=== PATIENT | male | born 1985 | race Two or more races ===

== ENCOUNTER 2018-06-24 17:21 | Inpatient (IN) | payer SELFPAY ==
--- NOTE | 2018-06-24 17:46 | EDPHY ---
H & P Stated Complaint: fever Time Seen by Provider: 06/24/18 17:42 HPI/ROS: HPI: This is a 32-year-old male who presents with Chief Complaint: Fever Location: Body Quality: Fever Duration: This morning Signs and Symptoms: no nausea, no vomiting, no diarrhea, no urinary symptoms, no chest pain, no shortness of breath, no wheezing, no cough, no sore throat, no neck stiffness, no joint pain, no swollen glands, no ear pain, no rash Timing: Acute, sudden Severity: Moderate to severe Context: Patient presents with waking up this morning with a temperature of a 104.3 F accompanied by decreased appetite and fatigue. Patient denies urinary symptoms, cough, wheezing, skin color changes, abdominal pain, vomiting, neck stiffness, sore throat. He is not taking any antipyretic medications. He reports that he received his influenza vaccine this year. [id number] at bedside and reports that he has a complicated medical history including coronary artery disease, CHF, atrial fibrillation on Eliquis and chronic right leg lymphedema. In the past, he has been treated for right lower extremity cellulitis. Patient reports mild increase of redness, warmth tenderness from based. Modifying Factors: None Comment: ROS: A comprehensive 10 system review of systems is otherwise negative aside from elements mentioned in the history of present illness. MEDICAL/SURGICAL/SOCIAL HISTORY: Medical history: Coronary artery disease, CHF, atrial fibrillation-On Eliquis, chronic right leg lymphedema Surgical history: Denies Social history: Nonsmoker. with children. Family history noncontributory. CONSTITUTIONAL: Ill but nontoxic-appearing morbidly obese, adult male, awake and alert, no obvious distress HEENT: Atraumatic and normocephalic, PERRL, EOMI. Nares patent; no rhinorrhea; no nasal mucosal edema. Tympanic membranes clear. Oropharynx clear, no exudate and moist pink mucosa. Airway patent. No lymphadenopathy. No meningismus. Cardiovascular: Normal S1/S2, irregular rate, tachycardia, without murmur rub or gallop. PULMONARY/CHEST: Symmetrical and nontender. Clear to auscultation bilaterally. Good air movement. No accessory muscle usage. ABDOMEN: Soft, nondistended, nontender, no rebound, no guarding, no peritoneal signs, no masses or organomegaly. No CVAT. EXTREMITIES: 2/2 pulses, strength 5/5, chronic right lower extremity lymphedema ; no erythema/warmth. no deformities, no clubbing, no cyanosis. NEUROLOGICAL: no focal neuro deficits. Slightly confused and not able to answer all questions appropriately per [id number] at bedside. SKIN: Warm and dry, no erythema. no rash. Good capillary refill. Source: Patient Exam Limitations: No limitations - Personal History Current Tetanus/Diphtheria Vaccine: Unsure Current Tetanus Diphtheria and Acellular Pertussis (TDAP): Unsure - Medical/Surgical History Hx Asthma: No Hx Chronic Respiratory Disease: No Hx Diabetes: No Hx Cardiac Disease: No Hx Renal Disease: No Hx Cirrhosis: No Hx Alcoholism: No Hx HIV/AIDS: No Hx Splenectomy or Spleen Trauma: No Other PMH: afib - Social History Smoking Status: Never smoked Constitutional: Initial Vital Signs Temperature (C) 38.5 C H 06/24/18 17:35 Heart Rate 113 H 06/24/18 17:35 Respiratory Rate 28 H 06/24/18 17:35 Blood Pressure 154/81 H 06/24/18 17:35 O2 Sat (%) 94 06/24/18 17:35 O2 Delivery Mode Room Air Allergies/Adverse Reactions: No Known Allergies Allergy (Unverified 06/24/18 17:34) Home Medications: Medication Instructions Recorded Ibuprofen [Motrin (*)] 400 mg PO DAILY PRN 06/24/18 Medical Decision Making - Diagnostics Imaging Results: Imaging Impressions Chest X-Ray 06/24/18 17:46 Impression: 1. Mild bronchitis/airways disease. 2. No definite focal pneumonia. Extremity Venous Study 06/24/18 18:20 Impression: 1. No major deep venous thrombosis right leg. 2. Nonvisualization of the right calf veins. Findings and recommendations discussed with Emergency Department physician, Christa Block at 19:06 hour, 06/24/2018. Final report concurs with initial preliminary interpretation. ED Course/Re-evaluation: Vital signs reviewed and sepsis protocol flagged. IV access and laboratory studies and a chest x-ray, urinalysis, RLE US and influenza test ordered Only given 500 cc normal saline instead of fluid bolus per sepsis protocol due to history of congestive heart failure and concern for fluid overload and Tylenol 1000 mg 1755: Notified by RN that [id number] reports that she gave 4 tablets of Tylenol at 5:00 p.m. Patient told me that he has not had any Tylenol or ibuprofen today. This is conflicting information. Patient needs antipyretic for fever and will give ibuprofen 600 mg. 1853: Labs reviewed. WBC 23 K with left shift, lactic acid 2.1, BUN 25, creatinine 1.9, proBNP 7 210-unsure of baseline. Total bili elevated likely due to sepsis. O2 sats 94% on room air Chest x-ray based on radiology read shows Mild bronchitis/airways disease, No definite focal pneumonia. 1904: Called by Dr. Yeager; right lower extremity ultrasound shows no DVT in femoral, popliteal vein 1926: Reassessed patient who is alert and oriented x3. Not able to answer questions more appropriately wants fever has resolved. Patient reports that there is mild increase of redness and warmth to the right lower extremity. Will go ahead and prophylactically start IV Ancef 2 g for cellulitis treatment. Influenza a and B negative. Respiratory pathogen panel ordered. ED decision to consult for admission for sepsis secondary to viral syndrome versus right lower extremity cellulitis. Spoke with hospitalist, Dr. Collins, who kindly agrees to admit patient to provide further care. Urinalysis pending at time of consult. 1956: Urinalysis shows no signs of infection. + hematuria; may need renal ultrasound for further evaluation This patient was seen under the supervision of my secondary supervising physician. I evaluated care for this patient independently. Discussed this patient with Dr. Rao who did not see the patient. Differential Diagnosis: Adult fever including but not limited to viral syndromes including influenza, urinary tract infection, pneumonia and sepsis. Critical Care Time: I spent a total of 38 minutes of critical care time in obtaining history, performing a physical exam, bedside monitoring of interventions, collecting and interpreting tests and discussion with consultants but not including time spent performing procedures. - Data Points Laboratory Results: Laboratory Results 06/24/18 18:02 06/24/18 18:02 06/24/18 06/24/18 06/24/18 19:15 19:15 18:02 WBC RBC Hgb Hct MCV MCH MCHC RDW Plt Count MPV Neut % (Auto) Lymph % (Auto) [place] % (Auto) Eos % (Auto) Baso % (Auto) Nucleat RBC Rel Count Absolute Neuts (auto) Absolute Lymphs (auto) Absolute Monos (auto) Absolute Eos (auto) Absolute Basos (auto) Absolute Nucleated RBC Immature Gran % Seg Neutrophils % Band Neutrophils % Lymphocytes % Monocytes % Eosinophils % Basophils % Metamyelocytes % Myelocytes % Promyelocytes % Blast Cells % Immature Gran # Absolute Seg Neuts Absolute Band Neuts Absolute Lymphocytes Absolute Monocytes Absolute Eosinophils Absolute Basophils Absolute Metamyelocyte Absolute Myelocytes Absolute Promyelocytes Absolute Plasma Cells Nucleated RBCs RBC/WBC/PLT Morphology Absolute Blast Cells Plasma Cells % Platelet Estimate VBG Lactic Acid Sodium Potassium Chloride Carbon Dioxide Anion Gap BUN Creatinine Estimated GFR Glucose Calcium Total Bilirubin Conjugated Bilirubin Unconjugated Bilirubin AST ALT Alkaline Phosphatase NT-Pro-B Natriuret Pep Total Protein Albumin Procalcitonin Pending Urine Color YELLOW Urine Appearance HAZY Urine pH 5.0 (5.0-7.5) Ur Specific [place] 1.016 (1.002-1.030) Urine Protein 3+ H (NEGATIVE) Urine Ketones NEGATIVE (NEGATIVE) Urine Blood 2+ H (NEGATIVE) Urine Nitrate NEGATIVE (NEGATIVE) Urine Bilirubin NEGATIVE (NEGATIVE) Urine Urobilinogen 2.0 EU H EU (0.2-1.0) Ur Leukocyte Esterase NEGATIVE (NEGATIVE) Urine RBC 15-25 /hpf H /hpf (0-3) Urine WBC 1-3 /hpf /hpf (0-3) Ur Epithelial Cells TRACE /lpf /lpf (NONE-1+) Urine Bacteria TRACE /hpf H /hpf (NONE SEEN) Hyaline Casts 1-5 /lpf /lpf (0-1) Urine Mucus TRACE /lpf /lpf (NONE-1+) Ur Random Creatinine 198.3 mg/dL mg/dL U Random Total Protein 933 mg/dL H mg/dL (0-11) Ur Random Sodium 13 mEq/L L mEq/L (30-90) Urine Glucose NEGATIVE (NEGATIVE) Nasal Influenza A PCR Nasal Influenza B PCR 06/24/18 06/24/18 06/24/18 18:02 18:02 18:02 WBC 23.42 10^3/uL H 10^3/uL (3.80-9.50) RBC 5.90 10^6/uL 10^6/uL (4.40-6.38) Hgb 14.8 g/dL g/dL (13.7-17.5) Hct 44.9 % % (40.0-51.0) MCV 76.1 fL L fL (81.5-99.8) MCH 25.1 pg L pg (27.9-34.1) MCHC 33.0 g/dL g/dL (32.4-36.7) RDW 15.9 % H % (11.5-15.2) Plt Count 229 10^3/uL 10^3/uL (150-400) MPV 9.3 fL fL (8.7-11.7) Neut % (Auto) Not Reported Lymph % (Auto) Not Reported [place] % (Auto) Not Reported Eos % (Auto) Not Reported Baso % (Auto) Not Reported Nucleat RBC Rel Count Not Reported Absolute Neuts (auto) Not Reported Absolute Lymphs (auto) Not Reported Absolute Monos (auto) Not Reported Absolute Eos (auto) Not Reported Absolute Basos (auto) Not Reported Absolute Nucleated RBC Not Reported Immature Gran % Not Reported Seg Neutrophils % 71.3 % % Band Neutrophils % 22.8 % % Lymphocytes % 1.0 % % Monocytes % 2.9 % % Eosinophils % 0.0 % % Basophils % 0.0 % % Metamyelocytes % 2.0 % % Myelocytes % 0.0 % % Promyelocytes % 0.0 % % Blast Cells % 0.0 % % Immature Gran # Not Reported Absolute Seg Neuts 16.70 10^3/uL H 10^3/uL (1.70-6.50) Absolute Band Neuts 5.34 10^3/uL H 10^3/uL (0.00-0.70) Absolute Lymphocytes 0.23 10^3/uL L 10^3/uL (1.00-3.00) Absolute Monocytes 0.68 10^3/uL 10^3/uL (0.30-0.80) Absolute Eosinophils 0.00 10^3/uL L 10^3/uL (0.03-0.40) Absolute Basophils 0.00 10^3/uL L 10^3/uL (0.02-0.10) Absolute Metamyelocyte 0.47 10^3/mL H 10^3/mL (0.00-0.00) Absolute Myelocytes 0.00 10^3/mL 10^3/mL (0.00-0.00) Absolute Promyelocytes 0.00 10^3/uL 10^3/uL (0.00-0.00) Absolute Plasma Cells 0.00 10^3/uL 10^3/uL (0.00-0.00) Nucleated RBCs 0 /100 WBC /100 WBC (0-0) RBC/WBC/PLT Morphology NORMAL (NORMAL) Absolute Blast Cells 0.00 10^3/uL 10^3/uL (0.00-0.00) Plasma Cells % 0.0 % % Platelet Estimate ADEQUATE (ADEQ) VBG Lactic Acid Sodium 133 mEq/L L mEq/L (135-145) Potassium 3.9 mEq/L mEq/L (3.3-5.0) Chloride 102 mEq/L mEq/L (97-110) Carbon Dioxide 20 mEq/l L mEq/l (22-31) Anion Gap 11 mEq/L mEq/L (6-14) BUN 25 mg/dL H mg/dL (7-23) Creatinine 1.9 mg/dL H mg/dL (0.7-1.3) Estimated GFR 41 Glucose 128 mg/dL H mg/dL (70-100) Calcium 8.4 mg/dL L mg/dL (8.5-10.4) Total Bilirubin 1.6 mg/dL H mg/dL (0.1-1.4) Conjugated Bilirubin 0.5 mg/dL mg/dL (0.0-0.5) Unconjugated Bilirubin 1.1 mg/dL mg/dL (0.0-1.1) AST 32 IU/L IU/L (17-59) ALT 19 IU/L L IU/L (21-72) Alkaline Phosphatase 64 IU/L IU/L (38-126) NT-Pro-B Natriuret Pep 7210 pg/mL H pg/mL (0-125) Total Protein 8.1 g/dL g/dL (6.3-8.2) Albumin 3.6 g/dL g/dL (3.5-5.0) Procalcitonin Urine Color Urine Appearance Urine pH Ur Specific [place] Urine Protein Urine Ketones Urine Blood Urine Nitrate Urine Bilirubin Urine Urobilinogen Ur Leukocyte Esterase Urine RBC Urine WBC Ur Epithelial Cells Urine Bacteria Hyaline Casts Urine Mucus Ur Random Creatinine U Random Total Protein Ur Random Sodium Urine Glucose Nasal Influenza A PCR NEGATIVE FOR FLU A (NEGATIVE) Nasal Influenza B PCR NEGATIVE FOR FLU B (NEGATIVE) 06/24/18 18:02 WBC RBC Hgb Hct MCV MCH MCHC RDW Plt Count MPV Neut % (Auto) Lymph % (Auto) [place] % (Auto) Eos % (Auto) Baso % (Auto) Nucleat RBC Rel Count Absolute Neuts (auto) Absolute Lymphs (auto) Absolute Monos (auto) Absolute Eos (auto) Absolute Basos (auto) Absolute Nucleated RBC Immature Gran % Seg Neutrophils % Band Neutrophils % Lymphocytes % Monocytes % Eosinophils % Basophils % Metamyelocytes % Myelocytes % Promyelocytes % Blast Cells % Immature Gran # Absolute Seg Neuts Absolute Band Neuts Absolute Lymphocytes Absolute Monocytes Absolute Eosinophils Absolute Basophils Absolute Metamyelocyte Absolute Myelocytes Absolute Promyelocytes Absolute Plasma Cells Nucleated RBCs RBC/WBC/PLT Morphology Absolute Blast Cells Plasma Cells % Platelet Estimate VBG Lactic Acid 2.1 mmol/L mmol/L (0.7-2.1) Sodium Potassium Chloride Carbon Dioxide Anion Gap BUN Creatinine Estimated GFR Glucose Calcium Total Bilirubin Conjugated Bilirubin Unconjugated Bilirubin AST ALT Alkaline Phosphatase NT-Pro-B Natriuret Pep Total Protein Albumin Procalcitonin Urine Color Urine Appearance Urine pH Ur Specific [place] Urine Protein Urine Ketones Urine Blood Urine Nitrate Urine Bilirubin Urine Urobilinogen Ur Leukocyte Esterase Urine RBC Urine WBC Ur Epithelial Cells Urine Bacteria Hyaline Casts Urine Mucus Ur Random Creatinine U Random Total Protein Ur Random Sodium Urine Glucose Nasal Influenza A PCR Nasal Influenza B PCR Medications Given: Discontinued Medications Sodium Chloride (Ns) 500 mls @ 1,000 mls/hr IV EDNOW ONE PRN Reason: Protocol Stop: 06/24/18 18:16 Last Admin: 06/24/18 18:05 Dose: 500 mls Cefazolin Sodium/Dextrose (Ancef) 100 mls @ 200 mls/hr IV EDNOW ONE PRN Reason: Protocol Stop: 06/24/18 19:51 Last Admin: 06/24/18 19:31 Dose: 100 mls Ibuprofen (Motrin) 600 mg PO EDNOW ONE Stop: 06/24/18 17:57 Last Admin: 06/24/18 18:05 Dose: 600 mg Departure - Departure Disposition: [facility] Acute Clinical Impression: Lymphedema of right lower extremity, Cellulitis of right lower extremity, Renal insufficiency Sepsis Qualifiers: Sepsis type: sepsis due to unspecified organism Qualified Code(s): A41.9 - Sepsis, unspecified organism Condition: Fair
[2018-06-24] MEDS ORDERED: ACETAMINOPHEN 500 MG TAB PO ONE (17:47)
[2018-06-24] MEDS ORDERED: NS 500 ML IV ONE ×2 (17:47→20:42)
[2018-06-24] MEDS ORDERED: IBUPROFEN 600 MG TAB PO ONE (17:56)
[2018-06-24 18:21] LABS: PLATELET COUNT 229 10^3/uL (150-400)
[2018-06-24] MEDS ORDERED: ceFAZolin 2 GM/DEXTROSE 100 ML IV ONE (19:22)
[2018-06-24] MEDS ORDERED: CEFAZOLIN 1 GM/DEXTROSE/50 ML BAG IV ONE (19:26)
[2018-06-24] MEDS ORDERED: oxyCODONE IR 5 MG TAB PO PRN (19:56)
[2018-06-24] MEDS ORDERED: ONDANSETRON DISINTEGRATING 4 MG TAB PO PRN (19:56)
[2018-06-24] MEDS ORDERED: ONDANSETRON 4 MG/2 ML VIAL IVP PRN (19:56)
--- NOTE | 2018-06-24 20:07 | PDGENHP ---
History and Physical - Chief Complaint fever - History of Present Illness 32yo obese M with history of atrial fibrillation not on anticoagulation, chronic R leg edema presents to ED with fever to 104.3 degrees at home. He is in town from [place] visiting his father who was just released from this hospital a few days ago with home hospice services. He had been in usual state of health until yesterday evening when he developed chills. Woke up with AM with temperature. Has been lethargic all day so family encouraged him to come in. He denies any cough, shortness of breath, chest pain, neck stiffness, headache, n/v/d, urinary symptoms. He does note that his right leg is more swollen and red than normal. No drainage or open wounds that he is aware of. In the ED, he was meeting sepsis criteria (temp 38.5, HR 113, RR 28, WBC 23K with left shift). CXR negative for pneumonia. Due to appearance of his right leg , he was given 2g of cephalexin and is being admitted to the floor for further management. Case discussed with ED provider Christa Block. 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 in last 6 months), RLE cellulitis (was on keflex 10/2017), morbid obesity - Surgical History Reports: no pertinent surgical hx - Family History Additional family history: father - ESRD, no known early CAD - Social History Smoking Status: Never smoked Alcohol Use: Rarely Drug Use: None Additional social history: Lives in [place] with and kids, 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 Review of Systems Review of Systems: ROS: 10pt was reviewed & negative except for what was stated in HPI & below Physical Exam Physical Exam: Temp Pulse Resp BP Pulse Ox 37.5 C 101 H 22 H 145/89 H 93 06/24/18 19:56 06/24/18 19:56 06/24/18 19:56 06/24/18 19:56 06/24/18 19:56 Constitutional: obese, uncomfortable, other (sweat on forehead) Eyes: PERRL, anicteric sclera, EOMI Ears, Nose, Mouth, Throat: dry mucous membranes Cardiovascular: no murmur, rub, or gallop, tachycardia, edema (impressive RLE pitting edema) Respiratory: no rales or rhonchi, clear to auscultation, other (tachypneic) Gastrointestinal: normoactive bowel sounds, soft, non-tender abdomen, no palpable masses Genitourinary: no bladder fullness, no bladder tenderness Skin: other (chronic venous stasis of RLE with overlying erythema ) Musculoskeletal: full muscle strength, no muscle tenderness, normal joint ROM, no joint effusions Neurologic: AAOx3 Psychiatric: interacting appropriately, not anxious, not encephalopathic, thought process linear Lab Data & Imaging Review 06/24/18 18:02 06/24/18 18: WBC 23.42 10^3/uL (3.80-9.50) H 06/24/18 18: RBC 5.90 10^6/uL (4.40-6.38) 06/24/18 18: Hgb 14.8 g/dL (13.7-17.5) 06/24/18 18: Hct 44.9 % (40.0-51.0) 06/24/18 18: MCV 76.1 fL (81.5-99.8) L 06/24/18 18: MCH 25.1 pg (27.9-34.1) L 06/24/18 18:02 MCHC 33.0 g/dL (32.4-36.7) 06/24/18 18: RDW 15.9 % (11.5-15.2) H 06/24/18 18:02 Plt Count 229 10^3/uL (150-400) 06/24/18 18: MPV 9.3 fL (8.7-11.7) 06/24/18 18: Neut % (Auto) Not Reported 06/24/18 18:02 Lymph % (Auto) Not Reported 06/24/18 18:02 [place] % (Auto) Not Reported 06/24/18 18:02 Eos % (Auto) Not Reported 06/24/18 18: Baso % (Auto) Not Reported 06/24/18 18:02 Nucleat RBC Rel Count Not Reported 06/24/18 18:02 Absolute Neuts (auto) Not Reported 06/24/18 18:02 Absolute Lymphs (auto) Not Reported 06/24/18 18:02 Absolute Monos (auto) Not Reported 06/24/18 18:02 Absolute Eos (auto) Not Reported 06/24/18 18:02 Absolute Basos (auto) Not Reported 06/24/18 18:02 Absolute Nucleated RBC Not Reported 06/24/18 18:02 Immature Gran % Not Reported 06/24/18 18:02 Seg Neutrophils % 71.3 % 06/24/18 18:02 Band Neutrophils % 22.8 % 06/24/18 18:02 Lymphocytes % 1.0 % 06/24/18 18:02 Monocytes % 2.9 % 06/24/18 18:02 Eosinophils % 0.0 % 06/24/18 18:02 Basophils % 0.0 % 06/24/18 18:02 Metamyelocytes % 2.0 % 06/24/18 18:02 Myelocytes % 0.0 % 06/24/18 18:02 Promyelocytes % 0.0 % 06/24/18 18:02 Blast Cells % 0.0 % 06/24/18 18:02 Immature Gran # Not Reported 06/24/18 18:02 Absolute Seg Neuts 16.70 10^3/uL (1.70-6.50) H 06/24/18 18:02 Absolute Band Neuts 5.34 10^3/uL (0.00-0.70) H 06/24/18 18:02 Absolute Lymphocytes 0.23 10^3/uL (1.00-3.00) L 06/24/18 18:02 Absolute Monocytes 0.68 10^3/uL (0.30-0.80) 06/24/18 18:02 Absolute Eosinophils 0.00 10^3/uL (0.03-0.40) L 06/24/18 18:02 Absolute Basophils 0.00 10^3/uL (0.02-0.10) L 06/24/18 18:02 Absolute Metamyelocyte 0.47 10^3/mL (0.00-0.00) H 06/24/18 18:02 Absolute Myelocytes 0.00 10^3/mL (0.00-0.00) 06/24/18 18:02 Absolute Promyelocytes 0.00 10^3/uL (0.00-0.00) 06/24/18 18:02 Absolute Plasma Cells 0.00 10^3/uL (0.00-0.00) 06/24/18 18:02 Nucleated RBCs 0 /100 WBC (0-0) 06/24/18 18:02 RBC/WBC/PLT Morphology NORMAL (NORMAL) 06/24/18 18:02 Absolute Blast Cells 0.00 10^3/uL (0.00-0.00) 06/24/18 18:02 Plasma Cells % 0.0 % 06/24/18 18:02 Platelet Estimate ADEQUATE (ADEQ) 06/24/18 18:02 VBG Lactic Acid 2.1 mmol/L (0.7-2.1) 06/24/18 18:02 Sodium 133 mEq/L (135-145) L 06/24/18 18:02 Potassium 3.9 mEq/L (3.3-5.0) 06/24/18 18:02 Chloride 102 mEq/L (97-110) 06/24/18 18:02 Carbon Dioxide 20 mEq/l (22-31) L 06/24/18 18:02 Anion Gap 11 mEq/L (6-14) 06/24/18 18:02 BUN 25 mg/dL (7-23) H 06/24/18 18:02 Creatinine 1.9 mg/dL (0.7-1.3) H 06/24/18 18:02 Estimated GFR 41 06/24/18 18:02 Glucose 128 mg/dL (70-100) H 06/24/18 18:02 Calcium 8.4 mg/dL (8.5-10.4) L 06/24/18 18:02 Total Bilirubin 1.6 mg/dL (0.1-1.4) H 06/24/18 18:02 Conjugated Bilirubin 0.5 mg/dL (0.0-0.5) 06/24/18 18:02 Unconjugated Bilirubin 1.1 mg/dL (0.0-1.1) 06/24/18 18:02 AST 32 IU/L (17-59) 06/24/18 18:02 ALT 19 IU/L (21-72) L 06/24/18 18:02 Alkaline Phosphatase 64 IU/L (38-126) 06/24/18 18:02 NT-Pro-B Natriuret Pep 7210 pg/mL (0-125) H 06/24/18 18:02 Total Protein 8.1 g/dL (6.3-8.2) 06/24/18 18:02 Albumin 3.6 g/dL (3.5-5.0) 06/24/18 18:02 Urine Color YELLOW 06/24/18 19:15 Urine Appearance HAZY 06/24/18 19:15 Urine pH 5.0 (5.0-7.5) 06/24/18 19:15 Ur Specific [place] 1.016 (1.002-1.030) 06/24/18 19:15 Urine Protein 3+ (NEGATIVE) H 06/24/18 19:15 Urine Ketones NEGATIVE (NEGATIVE) 06/24/18 19:15 Urine Blood 2+ (NEGATIVE) H 06/24/18 19:15 Urine Nitrate NEGATIVE (NEGATIVE) 06/24/18 19:15 Urine Bilirubin NEGATIVE (NEGATIVE) 06/24/18 19:15 Urine Urobilinogen 2.0 EU (0.2-1.0) H 06/24/18 19:15 Ur Leukocyte Esterase NEGATIVE (NEGATIVE) 06/24/18 19:15 Urine RBC 15-25 /hpf (0-3) H 06/24/18 19:15 Urine WBC 1-3 /hpf (0-3) 06/24/18 19:15 Ur Epithelial Cells TRACE /lpf (NONE-1+) 06/24/18 19:15 Urine Bacteria TRACE /hpf (NONE SEEN) H 06/24/18 19:15 Hyaline Casts 1-5 /lpf (0-1) 06/24/18 19:15 Urine Mucus TRACE /lpf (NONE-1+) 06/24/18 19:15 Ur Random Creatinine 198.3 mg/dL 06/24/18 19:15 Ur Random Sodium 13 mEq/L (30-90) L 06/24/18 19:15 Urine Glucose NEGATIVE (NEGATIVE) 06/24/18 19:15 Nasal Influenza A PCR NEGATIVE FOR FLU A (NEGATIVE) 06/24/18 18:02 Nasal Influenza B PCR NEGATIVE FOR FLU B (NEGATIVE) 06/24/18 18:02 Visualized and Interpreted Chest x-ray results: Yes Interpretation: CXR: normal heart size, no infiltrate or effusion, some perihilar fullness more prominent on the right (could represent PA enlargement) (interpreted by me). RLE duplex US: negative for DVT but limited study Visualized and Interpreted EKG results: Yes EKG additional interpertation: ECG: sinus tachy, left atrial enlargement, likely LVH with repol abnormality (manifested as T wave inversion/ST dep in lateral leads) (interp by me) Assessment & Plan Assessment: 32yo obese M with history of morbid obesity, atrial fibrillation not on anticoagulation, chronic R leg edema presents to ED with fever found to be septic. Plan: 1. Sepsis: Tachycardic, fever, leukocytosis, incr RR with likely skin source. With hematuria, an infected kidney stone is a possibility but he's asymptomatic. Alternatively, this could all be viral process. BP and lactate ok. - Ceftriaxone 1g q24, narrow to cephalexin if renal/ work up negative - IVF - Follow blood/urine cultures, respiratory viral PCR, obtain renal ultrasound 2. RLE cellulitis with chronic lymphedema: Has had recurrent skin infections in right leg in past - Treating as above, PT/OT 3. Elevated creatinine: Unknown baseline but this is likely acute injury from infection. Prerenal by FENa. - IVF, recheck in AM 4. Microscopic hematuria: No nitrites or WBCs on UA to suggest infection. He does have some protein on dipstick. - Imaging as above. Also check urine microscopy for casts, urine protein/ creatinine to eval for glomerular bleeding 5. Hyperbilirubinemia: Likely related to sepsis. Recheck in AM, if worsening consider RUQ ultrasound. 6. Elevated BNP: 7k. No prior. Says he had TTE recently in [place], will hold on repeating for now. Caution with IVF. 7. Atrial fibrillation: Reports one episode of this. NSR on admit. Off anticoagulation ([id number]). VTE ppx: SQH Code: full Diet: regular Dispo: Admit under observation
[2018-06-24] MEDS: HEPARIN 5,000 UNIT/0.5 ML INJ SC SCH (20:52)
[2018-06-24] MEDS: NS 1,000 ML IV SCH (20:52)
[2018-06-24] MEDS: ceFAZolin 2 GM/DEXTROSE 100 ML IV SCH (21:30)
[2018-06-25] MEDS ORDERED: ceFAZolin 2 GM/DEXTROSE 100 ML IV SCH (03:30)
--- NOTE | 2018-06-25 04:06 | CPEKG ---
Test Reason : OPEN Blood Pressure : / mmHG Vent. Rate : 112 BPM Atrial Rate : 113 BPM P-R Int : 152 ms QRS Dur : 110 ms QT Int : 377 ms P-R-T Axes : 069 042 000 degrees QTc Int : 515 ms Sinus tachycardia LAE, consider biatrial enlargement Abnormal T, consider ischemia, lateral leads Prolonged QT interval Confirmed by Sabi Hathaway ([id number]) on 06/25/2018 4:06:09 AM Referred By: Confirmed By:Sabi Hathaway
[2018-06-25] MEDS: HEPARIN 5,000 UNIT/0.5 ML INJ SC SCH ×3 (05:39→20:46)
[2018-06-25] MEDS: NS 1,000 ML IV SCH ×2 (11:44→20:46)
--- NOTE | 2018-06-25 12:38 | ASMTCMCOM ---
CM Note CM Note Notes: Pt is a 32 y/o man admitted for sepsis, viral syndrome and RLE cellulitis. Pt is visiting his family in [place]. Pts dad is currently home w/ hospice. Pt is here under self pay. According to pt, he has [place] medicaid. CM contacted financial counseling about this matter. Financial counseling to visit. CM met w/ pt and provided the phone numbe for financial counseling. CM spoke to Nelda w/ physical therapy. Nelda reports that pt does not have any d/c needs. Pt is morbidly obese. CM available for changes. Plan: Independent Date Signed: 06/25/2018 12:37 PM Electronically Signed By:TOMMY Atkins
[2018-06-25] MEDS: ACETAMINOPHEN 325 MG TAB PO PRN ×2 (16:05→23:26)
--- NOTE | 2018-06-25 17:29 | HOSPPROG ---
Hospitalist Progress Note Assessment/Plan: Subjective Follow-up on sepsis and right lower extremity cellulitis. Patient states his right lower extremity feels little better than it did when he 1st came in and has not subjectively noted any high fevers since starting on antibiotics. He states that he developed significant lymphedema in the right lower extremity about 5-6 years ago. He states it is usually about half the size that it currently is at. Objective Vital signs as detailed below Exam General-awake alert conversant no acute distress Heart-regular rate and rhythm no murmurs Lungs-Clear to auscultation with normal respiratory effort Abdomen-soft nontender nondistended normal bowel sounds -no Wills catheter in place Extremities-notable edema and warmth of the right lower extremity, erythema 900s appears to be subsiding Skin-no other concerning skin rashes noted Labs as detailed below Assessment plan Sepsis-likely source of elevated bilirubin. Clinically appears to be improving in his white blood cell count is trending down as well. Cellulitis-right lower extremity. Patient is currently on ceftriaxone appears to be improving so will continue with this antibiotic therapy. Patient states the level of swelling is about half of what it currently is at its baseline. Acute kidney injury-suspect prerenal based upon fractional excretion of sodium measured at 0.09%. Patient has been on normal saline at 75 mL/hour overnight. Creatinine is slightly up from 1.9 to 2.0. I recommend we increase the rate of normal saline to 125 mL/hour. Reassess creatinine again tomorrow morning. Hypoxia-patient may have obstructive sleep apnea. He was on room air at the time of my evaluation and satting at 94%. Atrial fibrillation-patient had 1 episode of atrial fibrillation earlier this year and was cardioverted with no known recurrence. His chads Vasc score is measured at 0. DVT prophylaxis-heparin. Disposition-I recommend continued inpatient stay for IV fluids in light of acute kidney injury. Objective: Vital Signs Temp Pulse Resp BP Pulse Ox 38.3 C H 104 H 18 131/91 H 97 06/25/18 17:16 06/25/18 17:16 06/25/18 17:16 06/25/18 17:16 06/25/18 17:16 Microbiology 06/24/18 19:31 Respiratory Panel (PCR) - Final Nasal, Sinus - Swab No Organism Detected By Pcr Laboratory Results 06/25/18 04:33 06/25/18 04:33 06/24/18 06/25/18 06/26/18 05:59 05:59 05:59 Intake Total 600 475 Output Total 200 100 Balance 400 375 ICD10 Worksheet Patient Problems: Problems Problem Status Onset Cellulitis of right lower extremity Acute Lymphedema of right lower extremity Acute Renal insufficiency Acute Sepsis Acute
[2018-06-26] MEDS: HEPARIN 5,000 UNIT/0.5 ML INJ SC SCH ×3 (05:16→21:08)
[2018-06-26] MEDS: NS 1,000 ML IV SCH ×2 (05:16→10:49)
[2018-06-26 05:40] LABS: PLATELET COUNT 159 10^3/uL (150-400)
--- NOTE | 2018-06-26 08:33 | PDMN ---
Medical Necessity Medical necessity: MCG: M160 sepsis and other febrile illness - pt also with RLE cellulitis improving. status changed 06/26/18 for ongoing care of sepsis/ cellulitis req IV abx. , further monitoring of cellulitis and elevated bili., Cr.
--- NOTE | 2018-06-26 12:04 | HOSPPROG ---
Hospitalist Progress Note Assessment/Plan: 32-year-old with chronic lymphedema right greater than left is admitted with fever leukocytosis and evidence of cellulitis on his right lower extremity. He denies any pain however his leg is a norm is with significant swelling above his baseline. Ultrasound ruled out evidence of DVT. He has signs and symptoms consistent with sepsis. # Right lower extremity cellulitis complicated by sepsis, leukocytosis improving and patient not currently febrile. Risk factors include chronic lymphedema in that extremity. * Discuss with ID regarding IV antibiotics currently on ceftriaxone with improvement in his white count and fever curve however continues to have massive edema and wonder if he will need a prolonged course of IV antibiotics. * Blood cultures negative to date * Patient not currently elevating leg will talk to nursing staff about elevating leg above his heart to see if that helps with the swelling. # Elevated BMP/edema. Pt with venous stasis, but given renal failure and elevated BNP will check echo # acute renal failure with elevated creatinine at 1.9. Unfortunately I am unclear of his baseline renal function no improvement with hydration. Renal ultrasound unremarkable. Urine shows proteinuria, mild hematuria and low sodium with no significant improvement with hydration. * Pt states he had episode of renal insufficiency several months ago but was told his kidneys returned to normal. * No records available as this occurred in [place], will attempt to get records * Unclear if this is all related to sepsis given hematuria and proteinuria, will discuss with renal re: need for further evaluation * No change with hydration * no nephrotoxics * No hypotension * Consider placing Wills to get better idea of I/Os, ultrasound was a poor study * check SPEP, given proteinuria # Hx afib in [place], converted to SR, CHADs = 0 # Venous stasis, evaluation in [place], Query if he has had CT of pelvis to look for obstruction. Will again, try to obtain records. # DVT proph: heparin. Subjective: Patient new to ms and chart reviewed. Denies significant pain in his right lower extremity although he has massive edema and swelling. Objective: Vital Signs Temp Pulse Resp BP Pulse Ox 36.9 C 87 22 H 149/82 H 97 06/26/18 11:38 06/26/18 11:38 06/26/18 11:38 06/26/18 11:38 06/26/18 11:38 Microbiology 06/24/18 19:31 Respiratory Panel (PCR) - Final Nasal, Sinus - Swab No Organism Detected By Pcr Laboratory Results 06/26/18 04:44 06/26/18 04:44 06/25/18 06/26/18 06/27/18 05:59 05:59 05:59 Intake Total 600 2925 Output Total 200 1150 Balance 400 1775 - Physical Exam Constitutional: no apparent distress, obese Eyes: PERRL Ears, Nose, Mouth, Throat: moist mucous membranes Cardiovascular: regular rate and rhythym, no murmur, rub, or gallop, edema ( Bilateral edema, massive edema on his right lower extremity) Respiratory: no respiratory distress, clear to auscultation Gastrointestinal: soft, non-tender abdomen Skin: warm, erythema (Right lower extremity) Musculoskeletal: No muscular tenderness Neurologic: AAOx3 Psychiatric: interacting appropriately, not anxious ICD10 Worksheet Patient Problems: Problems Problem Status Onset Cellulitis of right lower extremity Acute Lymphedema of right lower extremity Acute Renal insufficiency Acute Sepsis Acute
--- NOTE | 2018-06-26 13:18 | PDCONSULT ---
Jacquard Fixer Note: Renal Consult Note - Chief Complaint: Fever - History of Present Illness The patient is a 32 y/o M with a known h/o atrial fibrillation, chronic LE edema and obesity who presented with fever to 104F and was found to have recurrent LE cellulitis. He is visiting from [place] to see his father who was recently placed on hospice and is a former dialysis patient of Dr. Vitor Hoang. Upon his admission, he was reportedly lethargic with increased edema and erythema of his R leg. His Cr was near 2mg/dL. Today, the patient states that he was hospitalized last December for atrial fibrillation and was told he had some "issues with his kidney function" at that time, however it improved and he did not follow-up with nephrology afterward. He denies h/o hematuria, proteinuria, or other renal issues. He rarely takes NSAIDs, was not on antibiotics previous to this hospitalization (starting on Monday) and has no other new meds. He recently had blood work drawn prior to leaving [place], however does not know the results and isn't sure if he was screened for diabetes. He does not know his family history b/c he was adopted. He reports that he has had swelling in his R leg for nearly 8 years however it has "never been this bad." He is feeling better, missed his flight home last night, and isn 't sure when he is planning to return, however would be amenable to getting further work-up here. 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9 C 87 22 H 149/82 H 97 06/26/18 11:38 06/26/18 11:38 06/26/18 11:38 06/26/18 11:38 06/26/18 11:38 O2 (L/minute) 1 Constitutional: obese, no distress Eyes: PERRL, anicteric sclera, EOMI Ears, Nose, Mouth, Throat: dry mucous membranes Cardiovascular: no murmur, rub, or gallop, tachycardia Respiratory: tachypneic with some wheezing Gastrointestinal: normoactive bowel sounds, soft, non-tender abdomen, no palpable masses Genitourinary: no bladder fullness, no bladder tenderness Skin: RLE 4+ edema with no erythema, LLE trace edema Musculoskeletal: full muscle strength, no muscle tenderness, normal joint ROM, no joint effusions Neurologic: AAOx3, non-focal Psychiatric: appropriate Lab Data & Imaging Review WBC 14.91 10^3/uL (3.80-9.50) H 06/26/18 04:44 RBC 5.00 10^6/uL (4.40-6.38) 06/26/18 04:44 Hgb 12.4 g/dL (13.7-17.5) L 06/26/18 04:44 Hct 39.3 % (40.0-51.0) L 06/26/18 04:44 MCV 78.6 fL (81.5-99.8) L 06/26/18 04:44 MCH 24.8 pg (27.9-34.1) L 06/26/18 04:44 MCHC 31.6 g/dL (32.4-36.7) L 06/26/18 04:44 RDW 16.8 % (11.5-15.2) H 06/26/18 04:44 Plt Count 159 10^3/uL (150-400) 06/26/18 04:44 MPV 10.0 fL (8.7-11.7) 06/26/18 04:44 Neut % (Auto) 85.9 % (39.3-74.2) H 06/26/18 04:44 Lymph % (Auto) 5.0 % (15.0-45.0) L 06/26/18 04:44 [place] % (Auto) 8.0 % (4.5-13.0) 06/26/18 04:44 Eos % (Auto) 0.2 % (0.6-7.6) L 06/26/18 04:44 Baso % (Auto) 0.1 % (0.3-1.7) L 06/26/18 04:44 Nucleat RBC Rel Count 0.0 % (0.0-0.2) 06/26/18 04:44 Absolute Neuts (auto) 12.80 10^3/uL (1.70-6.50) H 06/26/18 04:44 Absolute Lymphs (auto) 0.75 10^3/uL (1.00-3.00) L 06/26/18 04:44 Absolute Monos (auto) 1.19 10^3/uL (0.30-0.80) H 06/26/18 04:44 Absolute Eos (auto) 0.03 10^3/uL (0.03-0.40) 06/26/18 04:44 Absolute Basos (auto) 0.02 10^3/uL (0.02-0.10) 06/26/18 04:44 Absolute Nucleated RBC 0.00 10^3/uL (0-0.01) 06/26/18 04:44 Immature Gran % 0.8 % (0.0-1.1) 06/26/18 04:44 Seg Neutrophils % 71.3 % 06/24/18 18:02 Band Neutrophils % 22.8 % 06/24/18 18:02 Lymphocytes % 1.0 % 06/24/18 18:02 Monocytes % 2.9 % 06/24/18 18:02 Eosinophils % 0.0 % 06/24/18 18:02 Basophils % 0.0 % 06/24/18 18:02 Metamyelocytes % 2.0 % 06/24/18 18:02 Myelocytes % 0.0 % 06/24/18 18:02 Promyelocytes % 0.0 % 06/24/18 18:02 Blast Cells % 0.0 % 06/24/18 18:02 Immature Gran # 0.12 10^3/uL (0.00-0.10) H 06/26/18 04:44 Absolute Seg Neuts 16.70 10^3/uL (1.70-6.50) H 06/24/18 18:02 Absolute Band Neuts 5.34 10^3/uL (0.00-0.70) H 06/24/18 18:02 Absolute Lymphocytes 0.23 10^3/uL (1.00-3.00) L 06/24/18 18:02 Absolute Monocytes 0.68 10^3/uL (0.30-0.80) 06/24/18 18:02 Absolute Eosinophils 0.00 10^3/uL (0.03-0.40) L 06/24/18 18:02 Absolute Basophils 0.00 10^3/uL (0.02-0.10) L 06/24/18 18:02 Absolute Metamyelocyte 0.47 10^3/mL (0.00-0.00) H 06/24/18 18:02 Absolute Myelocytes 0.00 10^3/mL (0.00-0.00) 06/24/18 18:02 Absolute Promyelocytes 0.00 10^3/uL (0.00-0.00) 06/24/18 18:02 Absolute Plasma Cells 0.00 10^3/uL (0.00-0.00) 06/24/18 18:02 Nucleated RBCs 0 /100 WBC (0-0) 06/24/18 18:02 RBC/WBC/PLT Morphology NORMAL (NORMAL) 06/24/18 18:02 Absolute Blast Cells 0.00 10^3/uL (0.00-0.00) 06/24/18 18:02 Plasma Cells % 0.0 % 06/24/18 18:02 Platelet Estimate ADEQUATE (ADEQ) 06/24/18 18:02 VBG Lactic Acid 2.1 mmol/L (0.7-2.1) 06/24/18 18:02 Sodium 135 mEq/L (135-145) 06/26/18 04:44 Potassium 3.8 mEq/L (3.3-5.0) 06/26/18 04:44 Chloride 104 mEq/L (97-110) 06/26/18 04:44 Carbon Dioxide 22 mEq/l (22-31) 06/26/18 04:44 Anion Gap 9 mEq/L (6-14) 06/26/18 04:44 BUN 30 mg/dL (7-23) H 06/26/18 04:44 Creatinine 1.9 mg/dL (0.7-1.3) H 06/26/18 04:44 Estimated GFR 41 06/26/18 04:44 Glucose 90 mg/dL (70-100) 06/26/18 04:44 Calcium 7.4 mg/dL (8.5-10.4) L 06/26/18 04:44 Total Bilirubin 1.3 mg/dL (0.1-1.4) 06/25/18 04:33 Conjugated Bilirubin 0.5 mg/dL (0.0-0.5) 06/24/18 18:02 Unconjugated Bilirubin 1.1 mg/dL (0.0-1.1) 06/24/18 18:02 AST 30 IU/L (17-59) 06/25/18 04:33 ALT 19 IU/L (21-72) L 06/25/18 04:33 Alkaline Phosphatase 58 IU/L (38-126) 06/25/18 04:33 NT-Pro-B Natriuret Pep 7210 pg/mL (0-125) H 06/24/18 18:02 Total Protein 7.1 g/dL (6.3-8.2) 06/25/18 04:33 Albumin 3.1 g/dL (3.5-5.0) L 06/25/18 04:33 Procalcitonin 34.83 ng/mL (0.02-0.10) H 06/24/18 18:02 Urine Color YELLOW 06/24/18 19:15 Urine Appearance HAZY 06/24/18 19:15 Urine pH 5.0 (5.0-7.5) 06/24/18 19:15 Ur Specific [place] 1.016 (1.002-1.030) 06/24/18 19:15 Urine Protein 3+ (NEGATIVE) H 06/24/18 19:15 Urine Ketones NEGATIVE (NEGATIVE) 06/24/18 19:15 Urine Blood 2+ (NEGATIVE) H 06/24/18 19:15 Urine Nitrate NEGATIVE (NEGATIVE) 06/24/18 19:15 Urine Bilirubin NEGATIVE (NEGATIVE) 06/24/18 19:15 Urine Urobilinogen 2.0 EU (0.2-1.0) H 06/24/18 19:15 Ur Leukocyte Esterase NEGATIVE (NEGATIVE) 06/24/18 19:15 Urine RBC 15-25 /hpf (0-3) H 06/24/18 19:15 Urine WBC 1-3 /hpf (0-3) 06/24/18 19:15 Ur Epithelial Cells TRACE /lpf (NONE-1+) 06/24/18 19:15 Urine Bacteria TRACE /hpf (NONE SEEN) H 06/24/18 19:15 Hyaline Casts 1-5 /lpf (0-1) 06/24/18 19:15 Urine Mucus TRACE /lpf (NONE-1+) 06/24/18 19:15 Ur Random Creatinine 198.3 mg/dL 06/24/18 19:15 U Random Total Protein 933 mg/dL (0-11) H 06/24/18 19:15 Ur Random Sodium 13 mEq/L (30-90) L 06/24/18 19:15 Urine Glucose NEGATIVE (NEGATIVE) 06/24/18 19:15 Nasal Influenza A PCR NEGATIVE FOR FLU A (NEGATIVE) 06/24/18 18:02 Nasal Influenza B PCR NEGATIVE FOR FLU B (NEGATIVE) 06/24/18 18:02 Imaging: Results of renal US reviewed. Assessment/Plan: The patient is a 32 y/o M with a known h/o atrial fibrillation , obesity and edema who presented with RLE cellulitis and is found to have possible DANIAL vs CKD with hematuria and nephrotic range proteinuria. Differential is broad and may include ATN, AIN, RPGN, vs chronic GN with underlying diabetes or other chronic disease. DANIAL -unknown baseline Cr now 1.9-2.0 with hematuria, proteinuria and some WBC's -hold fluids, monitor UO -renal US ok -will send serologies today -no acute indication for HD -if able to obtain records from [facility] would be helpful (will ask ) -continue to monitor and may consider biopsy tomorrow Nephrotic range proteinuria ->4g on spot, will order 24h urine -serologies and possible biopsy as above HTN/vol -patient has elevated BP's however no h/o HTN -recommend echo given significant LE and low [place]lin upon admission which may be cardiorenal related BMD -monitor Ca, Phos -renal diet not necessary for now RLE cellulitis -on ceftriaxone, continue for now as Cr already elevated upon admission -no DVT -primary team appreciated Consult appreciated, will continue to follow. Please contact if further questions, #[phone].
--- NOTE | 2018-06-26 14:39 | ECHO ---
[email or web address] [address] Main: [phone] Fax: Transthoracic Echocardiogram Name: REG SUGGS MR#: [id number] Study Date: 06/26/2018 Study Time: 01:52 PM Date of : 1985 Age: 32 year(s) Height: 185.4 cm (73 in.) Weight: 175.09 kg (386 lb.) BSA: 2.85 m2 Gender: Male Examination: Echo Indication: Sepsis, Viral Syndrome, LE Edema, RLE Cellulitis Image Quality: Contrast: Requested by: Jennifer Daniel BP: 149 mmHg/82 mmHg Heart Rate: 78 bpm Rhythm: Normal sinus rhythm Indication: Sepsis, Viral Syndrome, LE Edema, RLE Cellulitis Procedure Staff Job Captain: Bala Jules RDCS Reading Physician: Thaddeus Hall MD Requesting Provider: Conclusions: Mildly to moderately dilated left ventricle. Low normal left ventricular systolic function. The ejection fraction is estimated to be 50-55 %. The ejection fraction is visually estimated to be 55 %. Diastolic dysfunction is present. . There is moderate to severe concentric left venticular hypertrophy.. Normal size right ventricle. There is no significant mitral valve regurgitation. The aortic valve is tri-leaflet. The tricuspid valve is normal in appearance and function. The pulmonic valve is normal in appearance and function. No pericardial effusion. There appeared to be some degree of inferior wall hypokinesis in this study. No vegetations were noted - THOMAS would be a better method of clearly assessing the valves Measurements: Chambers Valvular Assessment AV/MV Valvular Assessment TV/PV Normal Normal Normal Name Value Range Name Value Range Name Value Range Ao Sue (MM): 3.8 cm (2.2 cm-3.7 AV Vmax: 1.68 m/s (1 m/s-1.7 PV Vmax: 1.05 m/s (0.6 m/s-0.9 cm) m/s) m/s) IVSd (2D): 1.4 cm (0.6 cm-1.1 AV maxP mmHg ( - ) PV PGmax: 4 mmHg ( - ) cm) LVOT Vmax: 0.85 m/s (0.7 m/s-1.1 LVDd (2D): 6.4 cm (4.2 cm-5.9 m/s) cm) MV E Vmax: 1.15 m/s ( - ) LVDs (2D): 4.6 cm (2.1 cm-4 MV A Vmax: 1.19 m/s ( - ) cm) MV E/A: 0.97 ( - ) LVPWd (2D): 1.6 cm (0.6 cm-1 cm) Patient: REG SUGGS Study Date: 06/26/2018 Page 1 of 2 01:52 PM LVEF (MM): 45 (>=55 %) Visual EF: 55 % EF Range: 50-55 % Continued Measurements: Chambers Valvular Assessment AV/MV Name Value Name Value LADs Lon.3 cm MV E' Septal: 0.06 m/s LA Area: 22.0 cm2 MV E/E' Septal: 18.70 LA Volume: 77 ml MV E/E' Lateral: 20.00 LA Volume Index: 27.0 ml/m2 Findings: Left Ventricle: Mildly to moderately dilated left ventricle. Low normal left ventricular systolic function. The ejection fraction is estimated to be 50-55 %. The ejection fraction is visually estimated to be 55 %. Diastolic dysfunction is present. . There is moderate to severe concentric left venticular hypertrophy.. Right Ventricle: Normal size right ventricle. Normal RV function. Left Atrium: The left atrium is normal in size. Right Atrium: The right atrium is normal in size. Mitral Valve: The mitral valve is normal in appearance and function. There is no significant mitral valve regurgitation. No mitral stenosis is present. Aortic Valve: The aortic valve is tri-leaflet. No aortic valve stenosis is present. There is no significant aortic valve regurgitation. Tricuspid Valve: The tricuspid valve is normal in appearance and function. Pulmonary artery pressure is not obtained due to inadequate TR jet. Pulmonic Valve: The pulmonic valve is normal in appearance and function. Aorta: The aorta is normal. Pericardium: No pericardial effusion. Exam Comments: (No Signature Object) Patient: REG SUGGS Study Date: 06/26/2018 Page 2 of 2 01:52 PM [id number]
[2018-06-26 19:22] LABS: HEPATITIS A ANTIBODY IGM (BCH) NEGATIVE (NEGATIVE); HEPATITIS B CORE AB IGM NEGATIVE (NEGATIVE); HEPATITIS B SURFACE ANTIGEN NEGATIVE (NEGATIVE)
[2018-06-26 19:29] LABS: HEPATITIS C ANTIBODY TOTAL NEGATIVE (NEGATIVE); HIV TYPE 1 AND 2 NEGATIVE (NEGATIVE)
[2018-06-26] MEDS: ACETAMINOPHEN 325 MG TAB PO PRN (21:07)
--- NOTE | 2018-06-26 22:13 | GCON ---
INFECTIOUS DISEASE CONSULTATION DATE OF CONSULTATION: 06/26/2018 REASON FOR CONSULTATION: Right lower extremity cellulitis. HPI: This is a very pleasant 32-year-old male, who lives in [place], [place], who is here visiting his adoptive father, coming to the local area on July 22. He developed fevers and malaise and felt that his right leg was more swollen overnight between June 23 and June 24 and present ed to the emergency room. In the emergency room, the patient was found to be febrile, tachycardic wi th leukocytosis of 23,000. It was identified that his right lower extremity was swollen and cellulit ic, and patient was started on IV ceftriaxone 1 g. Since admission, the patient reports feeling sign ificantly improved and denies any lower extremity pain. He denies any injury. He was hospitalized f or cellulitis previously 7 months ago. He states that he has some baseline worse edema in the right compared to the left but not to this degree. ALLERGIES: NKDA. HOME MEDICATIONS: Eliquis. Since admission, the patient has been on ceftriaxone 1 g IV daily. PAST MEDICAL HISTORY: Atrial fibrillation and right lower extremity cellulitis, as mentioned in the HPI. The patient did have some renal insufficiency during his hospitalization but denied chronic jayla al insufficiency. SURGICAL HISTORY: Negative. FAMILY HISTORY: Unknown, as the patient is adopted. SOCIAL HISTORY: The patient drinks occasionally. No tobacco. No drug use. 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 He has an 11 and 12-year-old child and is . REVIEW OF SYSTEMS: A complete 10-point review of systems was performed and is negative except as men tioned in the HPI. PHYSICAL EXAMINATION: VITAL SIGNS: BP 149/82, heart rate 87, respiratory rate 22, saturation 97% on 1 L, temperature 36.9. Last fever 06/25 at 2300 was 39.4. GENERAL: This is a very plea matias male in no acute distress. HEENT: No jaundice. Good dentition. Moist mucous membranes. NECK : Supple. CARDIOVASCULAR: Regular rate. No murmur. RESPIRATORY: Breathing easy. Barrel chested . No crackles. ABDOMEN: Obese, soft, nontender. : No tenderness/suprapubic tenderness. MUSCUL OSKELETAL: Marked swelling of the right lower extremity to the degree of almost 3 times the size of his left leg, and his calf is almost larger than his thigh on the right. He has erythema with a demo nstrable border up to the knee with some tracking medially up the thigh. Inguinal region nontender w ithout lymphadenopathy. He is moving all 4 extremities equally, and he is alert and oriented x4. LABORATORIES: Initial white count 23,000, today 14, hematocrit 39, platelets of 159, with 85 % neutr ophils. Creatinine 1.9. LFTs were within normal limits. Procalcitonin 34. Urinalysis showed 15-25 RBCs and 3+ protein. Random urine protein was 933. Influenza and respiratory PCR were negative. T he patient has 2 sets of blood cultures, 06/24/2018, that are negative. IMAGING: The patient had a right lower extremity ultrasound that was negative for DVT, a chest x-ray that showed no focal infiltrates. ASSESSMENT AND PLAN: This is a 32-year-old male with morbid obesity with a weight of 170 kg, who pre sents with fever, leukocytosis, tachycardia, and right lower extremity cellulitis with marked associa dar swelling. No tenderness, no crepitus, and no fluctuance noted on exam. 1. Remarkable swelling, gives some concern for need of additional imaging, but in the lack of pain a nd fluctuance and clinical improvement, we will continue to monitor. 2. Suspect streptococcal etiology. Blood cultures remain negative. Patient has responded to ceftri axone. At this point, hopeful to be able to discharge the patient in the next day or 2. Therefore, we will leave him on long-acting cephalosporin but increase the dose to 2 g intravenous daily due to patient's weight. Further, ceftriaxone is liver metabolized; therefore, does not require renal dosin g. 3. When available, we will review Nephrology's consult regarding acute renal failure. 4. Continue to follow blood cultures. Thank you for this consultation. We will continue to follow the patient on a daily basis. /[id number]
[2018-06-27 05:22] LABS: PLATELET COUNT 141 10^3/uL (150-400)
[2018-06-27] MEDS: HEPARIN 5,000 UNIT/0.5 ML INJ SC SCH ×2 (06:12→13:43)
--- NOTE | 2018-06-27 08:34 | SOAPPROG ---
SOAP Progress Note Assessment/Plan: Assessment: DANIAL, creat stable at 1.9 hematuria and proteinuria, ? GN, infectious or otherwise Strep cellulitis life threatening obesity HTN Plan: counseled regarding DANIAL and possible need for biopsy counseled regarding risks of biopsy including: infection bleeding gross hematuria need for transfusion need for surgical or radiologic repair of a damaged kidney possible nephrectomy possible will need to bring down his blood pressure prior to biopsy to minimize risk will start PO amlodipine will start PO carvedilol will have PRN IV hydralazine 06/27/18 08:29 Subjective: up to couch feels overall better edema improved no cp nausea or vomiting some MATT appetite OK sleeping OK spirits good Objective: Vital Signs Temp Pulse Resp BP Pulse Ox 37.4 C 72 24 H 163/100 H 98 06/27/18 07:26 06/27/18 07:26 06/27/18 07:26 06/27/18 07:26 06/27/18 07:26 Laboratory Results 06/27/18 04:47 06/26/18 04:44 06/26/18 06/27/18 06/28/18 05:59 05:59 05:59 Intake Total 2925 800 Output Total 1150 2600 Balance 1775 -1800 Physical Exam - Physical Exam General Appearance: alert, obese Neck: normal inspection Respiratory: No rhonchi, No wheezing Cardiac/Chest: regular rate, rhythm, edema Abdomen: normal bowel sounds, non-tender, soft Skin: other (changes of chronic edema R>L) Extremities: swelling Neuro/Psych: alert, normal mood/affect, oriented x 3 ICD10 Worksheet Patient Problems: Problems Problem Status Onset Cellulitis of right lower extremity Acute Lymphedema of right lower extremity Acute Renal insufficiency Acute Sepsis Acute
--- NOTE | 2018-06-27 09:39 | PCMIDPN ---
Assessment/Plan: # RLE cellulitis: erythema much improved, still massive edema, no fluctuance or pain, crepitus to palpation. No groin lesion noted yesterday on exam. WBC continuing to improve. AF since 06/25 --continue IV ceftriaxone, liver metabolism , no renal dosing. ARF started before initiating ceftriaxone. Higher dose due to weight #170 --suspect infection mediated by streptococcus, therefore, from ID perspective, strep induced GN causing renal dysfunction high on list --continue LE elevation --once renal failure sorted out okay to discharge patient on Keflex 500 mg four times daily, to complete a total of 10 days. # ARF : reviewed nephrology consults, notes, planning biopsy meds ceftriaxone 2gm IV daily #4 micro 06/26 Ucx: NGTD 06/24 blood cx (2): NGTD Subjective: feeling better no diarrhea no leg pain Objective: Vital Signs Temp Pulse Resp BP Pulse Ox 37.4 C 72 24 H 163/100 H 98 06/27/18 07:26 06/27/18 07:26 06/27/18 07:26 06/27/18 07:26 06/27/18 07:26 Laboratory Results 06/27/18 04:47 06/26/18 04:44 06/26/18 06/27/18 06/28/18 05:59 05:59 05:59 Intake Total 2925 800 Output Total 1150 2600 Balance 1775 -1800 - Physical Exam General Appearance: alert, no apparent distress, obese EENT: No scleral icterus Respiratory: lungs clear, No accessory muscle use Cardiac/Chest: regular rate, rhythm, No systolic murmur Extremities: swelling (Marked swelling of the right leg persist with hyperpigmentation in a stocking distribution; faint erythema also remains but much improved, mild warmth. Right leg is 2-3 times the size of the left. Pulses are present) Abdomen: non-tender, soft Skin: No rash Neuro/Psych: alert, normal mood/affect, oriented x 3 - Time Spent With Patient Time Spent with Patient: greater than 35 minutes (Patient was examined with Dr. Naqvi) Time Spent with Patient: Greater than 35 minutes spent on this patients care, greater than 50% of time spent counseling, educating, and coordinating care regarding the above mentioned plan. ICD10 Worksheet Patient Problems: Problems Problem Status Onset Cellulitis of right lower extremity Acute Lymphedema of right lower extremity Acute Renal insufficiency Acute Sepsis Acute
[2018-06-27] MEDS: amLODIPine BESYLATE 5 MG TAB PO SCH (10:56)
--- NOTE | 2018-06-27 17:21 | HOSPPROG ---
Hospitalist Progress Note Assessment/Plan: #Sepsis: from RLE cellulitis #RLE cellulitis: improved greatly on IV abx, will be able to transition to orals at DC #Compensated diastolic HF: goal will be BP control. Norvasc, Coreg started #DANIAL: unclear baseline. Hematuria/proteinuria. Not improved with IVFs -renal biopsy in morning -24 hr urine studies, serologies pending #Accelerated HTN: suspect long-standing with LVH, diastolic dysfunction on echo -echo shows some inferior hypokinesis. No CP, SOB. Would be reasonable for outpatient stress test # Hx afib in [place], converted to SR, CHADs = 0 # Venous stasis, evaluation in [place], Query if he has had CT of pelvis to look for obstruction. Will again, try to obtain records. #Leukocytosis: nearly resolved on abx #Morbid obesity: counseled on diet/exercise #Diet: regular #DVT ppx: hold Lovenox #Disp: inpatient admission for IV abx, renal bx. Case discussed with Dr. Meyers Subjective: no pain in leg. No CP, SOB at baseline with exertion Objective: Vital Signs Temp Pulse Resp BP Pulse Ox 37.4 C 77 24 H 162/91 H 94 06/27/18 16:00 06/27/18 16:00 06/27/18 16:00 06/27/18 16:00 06/27/18 16:00 Laboratory Results 06/27/18 04:47 06/27/18 09:27 06/26/18 06/27/18 06/28/18 05:59 05:59 05:59 Intake Total 2925 800 Output Total 1150 2600 Balance 1775 -1800 - Time Spent With Patient Time Spent with Patient: greater than 35 minutes Time Spent with Patient: Greater than 35 minutes spent on this patients care, greater than 50% of time spent counseling, educating, and coordinating care regarding the above mentioned plan. - Physical Exam Constitutional: obese Eyes: PERRL Ears, Nose, Mouth, Throat: moist mucous membranes Cardiovascular: regular rate and rhythym Respiratory: no respiratory distress Gastrointestinal: normoactive bowel sounds Genitourinary: No guthrie in urethra Musculoskeletal: other (significant swelling right leg with min erythema. No open lesions, ulcerations) Neurologic: AAOx3, CN II-XII Intact Psychiatric: interacting appropriately ICD10 Worksheet Patient Problems: Problems Problem Status Onset Cellulitis of right lower extremity Acute Lymphedema of right lower extremity Acute Renal insufficiency Acute Sepsis Acute
[2018-06-27] MEDS: hydrALAZINE 20 MG/ML VIAL IVP PRN (17:45)
[2018-06-27] MEDS: CARVEDILOL 6.25 MG TAB PO SCH (17:47)
[2018-06-28 01:26] LABS: PLATELET COUNT 153 10^3/uL (150-400)
[2018-06-28] MEDS: hydrALAZINE 20 MG/ML VIAL IVP PRN ×2 (04:59→22:30)
[2018-06-28] MEDS: amLODIPine BESYLATE 5 MG TAB PO SCH (08:40)
[2018-06-28] MEDS: CARVEDILOL 6.25 MG TAB PO SCH ×2 (08:40→17:54)
--- NOTE | 2018-06-28 09:10 | HOSPPROG ---
Hospitalist Progress Note Assessment/Plan: #Sepsis: from RLE cellulitis #RLE cellulitis: cont IV Ancef. High-dose Keflex at DC given obesity #Compensated diastolic HF: goal will be BP control. Dmtrue Coreg started #DANIAL: ATN or infection-related. Cr 1.2 #Accelerated HTN: suspect long-standing with LVH, diastolic dysfunction on echo -echo shows some inferior hypokinesis. No CP, SOB. Would be reasonable for outpatient stress test -Mariposaceli Coreg started 06/27 # Hx afib in [place], converted to SR, CHADs = 0 # Lymphedema: query if he has had CT of pelvis to look for obstruction. Needs to get plugged in with lymphedema clinic #Leukocytosis: nearly resolved on abx #ESBL E coli in urine: asymptomatic. Will not tx #Morbid obesity: counseled on diet/exercise #Diet: regular #DVT ppx: hold Lovenox #Disp: inpatient admission for IV abx, renal bx. Case discussed with Dr. Meyers Subjective: no pain in leg Objective: Vital Signs Temp Pulse Resp BP Pulse Ox 36.7 C 64 18 178/94 H 94 06/28/18 07:40 06/28/18 08:40 06/28/18 07:40 06/28/18 08:40 06/28/18 07:40 Microbiology 06/26/18 17:01 Urine Culture - Final Urine,Clean Catch Escherichia Coli Esbl Laboratory Results 06/28/18 01:09 06/28/18 04:42 06/27/18 06/28/18 06/29/18 05:59 05:59 05:59 Intake Total 800 Output Total 2600 850 Balance -1800 -850 - Physical Exam Constitutional: obese Eyes: PERRL Ears, Nose, Mouth, Throat: moist mucous membranes Cardiovascular: systolic murmur Respiratory: no respiratory distress Gastrointestinal: normoactive bowel sounds Genitourinary: No guthrie in urethra Musculoskeletal: other (significant lymphedema in right leg ) ICD10 Worksheet Patient Problems: Problems Problem Status Onset Cellulitis of right lower extremity Acute Lymphedema of right lower extremity Acute Renal insufficiency Acute Sepsis Acute
--- NOTE | 2018-06-28 09:38 | PCMIDPN ---
Assessment/Plan: 1. Right lower extremity cellulitis in morbidly obese patient with underlying lymphedema of right lower extremity: Improving. Encourage leg elevation. Patient has underlying lymphedema, and reports right lower extremity is getting close to baseline. Continue ceftriaxone as is. Agree that with nonpurulent cellulitis, streptococcal etiology is most likely. 2. Acute kidney injury with possible underlying glomerulonephritis: Time course for post streptococcal glomerulonephritis seems off, as this should occur some weeks after the initial infection. ? alternate etiology. Multiple studies pending. Creatinine much better today. 3. ESBL E coli in urine culture: Patient is asymptomatic. Would not treat. Contact isolation. 4. Tinea pedis: The patient has "dry" tinea pedis, with chafing and cracked skin between the web spaces of his toes consistent with tinea pedis. Will start clotrimazole twice daily. Explained to him the pathophysiology of this, and it is a risk factor for cellulitis moving forward, particularly with his underlying lymphedema. He understands he will need to treat this for several weeks. 5. Miscellaneous: HIV antibody negative. Talked to the patient at length today about his morbid obesity, and need for weight loss. Over 25 min spent with this patient today. 06/28/18 09:38 Subjective: Feeling much better. Not really keeping his leg elevated. No diarrhea. No urinary symptoms at all. Objective: Ceftriaxone 2 g IV daily day 5 No fevers Vital Signs Temp Pulse Resp BP Pulse Ox 36.7 C 64 18 178/94 H 94 06/28/18 07:40 06/28/18 08:40 06/28/18 07:40 06/28/18 08:40 06/28/18 07:40 Microbiology 06/26/18 17:01 Urine Culture - Final Urine,Clean Catch Escherichia Coli Esbl Laboratory Results 06/28/18 01:09 06/28/18 04:42 06/27/18 06/28/18 06/29/18 05:59 05:59 05:59 Intake Total 800 Output Total 2600 850 Balance -1800 -850 Urine with ESBL E coli Blood cultures negative HIV negative Streptozyme positive - Physical Exam General Appearance: no apparent distress, obese EENT: pharynx normal Respiratory: lungs clear Extremities: other (Right lower extremity with chronic lymphedema, much larger than left lower extremity. Has some brawny discoloration and chronic venous stasis changes pretibial area, with underlying brick red erythema noted, more prominent along the posterior calf. No bullae or vesicles. No significant tenderness to palpation. Cracked change skin in the web spaces of his toes bilaterally consistent with tinea pedis.) Skin: No rash ICD10 Worksheet Patient Problems: Problems Problem Status Onset Cellulitis of right lower extremity Acute Lymphedema of right lower extremity Acute Renal insufficiency Acute Sepsis Acute
[2018-06-28] MEDS ORDERED: amLODIPine BESYLATE 5 MG TAB PO SCH (10:09)
[2018-06-28] MEDS ORDERED: amLODIPine BESYLATE 5 MG TAB PO ONE (10:15)
--- NOTE | 2018-06-28 10:32 | SOAPPROG ---
SOAP Progress Note Assessment/Plan: Assessment/Plan: # DANIAL- likely infection-associated GN vs. IgA +/- ATN 2/2 sepsis --Cr now downtrended to 1.2. May need biopsy at some point, but will hold off today, as biopsy results unlikely to change my management at this time given downtrended Cr and high risk for immunosuppression given severe infection. Biopsy would also be technically difficult in this patient 2/2 body habitus. --Repeating Urinalysis and PCR # Morbid obesity # Sepsis 2/2 strep associated soft tissue infection of RLE --Abx per ID # Lymphedema- has had chronic edema of R leg for the past 8 years --Needs to be followed in lymphedema clinic as likely to have recurrent soft tissue infections as a result of skin breakdown from edema # Hypertension- BP remains above goal, but Amlodipine and Coreg just started 06/27 --Would continue to monitor BP for now and use PRN hydralazine. If BP still above goal after several days, would go up to 10mg Amlodipine (though need to be cautious with Amlodipine since could cause worsening of LE edema) Discussed plan with hospitalist and ID 06/28/18 10:33 06/28/18 10:39 Subjective: Patient feels ok today. He thinks that RLE infection is getting better. Denies shortness of breath. Discussed risks/benefits of renal biopsy at this point and plan to hold off for today. Objective: Vital Signs Temp Pulse Resp BP Pulse Ox 36.7 C 64 18 178/94 H 94 06/28/18 07:40 06/28/18 08:40 06/28/18 07:40 06/28/18 08:40 06/28/18 07:40 Microbiology 06/26/18 17:01 Urine Culture - Final Urine,Clean Catch Escherichia Coli Esbl Laboratory Results 06/28/18 01:09 06/28/18 04:42 06/27/18 06/28/18 06/29/18 05:59 05:59 05:59 Intake Total 800 Output Total 2600 850 Balance -1800 -850 General- awake, alert, morbidly obese Eyes- anicteric sclera, no conjunctival injection HEENT- MMM, no gross oral lesions Pulm- anterior lung rolon clear, breathing comfortably on RA CV-NRRR, no g/m/r GI- soft, non-tender, non-distended, + obese abdomen, +BS Extrem- severe lymphedema RLE, trace pitting LLE edema, RLE elevated on pillows Skin- RLE with chronic hyperpigmentation superimposed with fading erythema Psych- pleasant, answers questions appropriately Skin- tattoos on upper extremities ICD10 Worksheet Patient Problems: Problems Problem Status Onset Cellulitis of right lower extremity Acute Lymphedema of right lower extremity Acute Renal insufficiency Acute Sepsis Acute
--- NOTE | 2018-06-28 12:31 | ASMTCMCOM ---
CM Note CM Note Notes: Pt admitted into hospital w/right leg cellulitis. He is here visiting his father who is home whospice. Pt currently receivingIV abx but should dc with po. Pt lives in [place] with and children, cleared by PT for home. CM available for any changes. DC Plan: Independent Date Signed: 06/28/2018 12:30 PM Electronically Signed By:Leonela Yadav RN
[2018-06-28] MEDS: CLOTRIMAZOLE 1% 15 GM CRTUBE TP SCH ×2 (16:34→21:00)
--- NOTE | 2018-06-29 08:22 | HOSPPROG ---
Hospitalist Progress Note Assessment/Plan: #Sepsis: from RLE cellulitis #RLE cellulitis: cont IV Ancef. High-dose Keflex at DC given obesity #Compensated diastolic HF: goal will be BP control. Mayela Coreg started #DANIAL: ATN or infection-related. Cr 1.2. Outpatient 24hr studies #Accelerated HTN: suspect long-standing with LVH, diastolic dysfunction on echo -echo shows some inferior hypokinesis. No CP, SOB. Would be reasonable for outpatient stress test -Mayela Coreg started 06/27 - Add Lisinopril 10mg # Hx afib in [place], converted to SR, CHADs = 0 # Lymphedema: query if he has had CT of pelvis to look for obstruction. Needs to get plugged in with lymphedema clinic #Leukocytosis: nearly resolved on abx #ESBL E coli in urine: asymptomatic. Will not tx #Morbid obesity: counseled on diet/exercise #Diet: regular #DVT ppx: hold Lovenox #Disp: inpatient admission for IV abx, renal bx. Case discussed with Dr. Coleman Subjective: no CP or SOB Objective: Vital Signs Temp Pulse Resp BP Pulse Ox 36.9 C 65 20 175/94 H 95 06/29/18 04:00 06/29/18 04:00 06/29/18 04:00 06/29/18 04:00 06/29/18 04:00 Microbiology 06/26/18 17:01 Urine Culture - Final Urine,Clean Catch Escherichia Coli Esbl Laboratory Results 06/28/18 01:09 06/29/18 04:57 06/28/18 06/29/18 06/30/18 05:59 05:59 05:59 Intake Total 400 Output Total 1600 Balance -1200 - Time Spent With Patient Time Spent with Patient: greater than 35 minutes Time Spent with Patient: Greater than 35 minutes spent on this patients care, greater than 50% of time spent counseling, educating, and coordinating care regarding the above mentioned plan. - Physical Exam Constitutional: obese Eyes: PERRL Ears, Nose, Mouth, Throat: moist mucous membranes Cardiovascular: regular rate and rhythym Respiratory: no respiratory distress Gastrointestinal: normoactive bowel sounds Genitourinary: no bladder fullness Musculoskeletal: other (significant lymphedema right leg. Mild erythema. No open lesions) Neurologic: AAOx3 Psychiatric: interacting appropriately ICD10 Worksheet Patient Problems: Problems Problem Status Onset Cellulitis of right lower extremity Acute Lymphedema of right lower extremity Acute Renal insufficiency Acute Sepsis Acute
--- NOTE | 2018-06-29 09:27 | PCMIDPN ---
Assessment/Plan: 1. Right lower extremity cellulitis in morbidly obese patient with underlying lymphedema of right lower extremity: Much better today! Continue ceftriaxone as is. Given normalization in kidney function, upon discharge would give Keflex 1 g p.o. Three times daily ( increased dose in the setting of morbid obesity) to complete 10 days of therapy. (4 more days) Continue leg elevation. Agree that patient needs care at a lymphedema clinic moving forward, and CT scan of the abdomen and pelvis to rule out underlying obstructive cause. He states he has only had ultrasounds. 2. Acute kidney injury with possible underlying glomerulonephritis: Creatinine practically back to baseline. Suspect acute kidney injury was multifactorial, but mostly related to ATN. 3. ESBL E coli in urine culture: Patient is asymptomatic. Would not treat. Contact isolation. 4. Tinea pedis: Continue clotrimazole twice daily. Talked to the patient at length about his lymphedema and tinea pedis as risk factors for cellulitis. He will need to treat this for several weeks. Infectious Disease will sign off given that a plan is in place. Please call with any questions. Thank you! 06/29/18 09:28 Subjective: Much better today. Leg is practically back to baseline. Patient without complaints. In good spirits. No diarrhea. Objective: Ceftriaxone 2 g IV daily day 6 T-max 37.2 degrees Vital Signs Temp Pulse Resp BP Pulse Ox 37.1 C 60 18 187/110 H 96 06/29/18 08:00 06/29/18 08:00 06/29/18 08:00 06/29/18 08:00 06/29/18 08:00 Microbiology 06/26/18 17:01 Urine Culture - Final Urine,Clean Catch Escherichia Coli Esbl Laboratory Results 06/28/18 01:09 06/29/18 04:57 06/28/18 06/29/18 06/30/18 05:59 05:59 05:59 Intake Total 400 Output Total 1600 Balance -1200 No new microbiology Creatinine 1.1 - Physical Exam General Appearance: no apparent distress, obese EENT: pharynx normal, No thrush Extremities: other (Right lower extremity with chronic lymphedema. Erythema is essentially gone. Warmth is also improved.) Skin: other (Tinea pedis web spaces of toes bilaterally) ICD10 Worksheet Patient Problems: Problems Problem Status Onset Cellulitis of right lower extremity Acute Lymphedema of right lower extremity Acute Renal insufficiency Acute Sepsis Acute
[2018-06-29] MEDS: amLODIPine BESYLATE 5 MG TAB PO SCH (09:30)
[2018-06-29] MEDS: CARVEDILOL 6.25 MG TAB PO SCH ×2 (09:31→16:56)
[2018-06-29] MEDS: CLOTRIMAZOLE 1% 15 GM CRTUBE TP SCH ×2 (11:45→20:47)
--- NOTE | 2018-06-29 13:03 | SOAPPROG ---
SOAP Progress Note Assessment/Plan: Assessment/Plan: 32 y/o M with a known h/o obesity, atrial fibrillation and previous DANIAL who presented with RLE cellulitis and DANIAL now improving. DANIAL- -ASO>4000, may be PSGN however complements normal -Cr down to 1.1 today with good UO -holding on renal biopsy given patient body habitus, Cr improving, and lives in [place] -will need repeat 24h urine for protein as outpt and consideration of biopsy -other serologies NTD -ESBL E.coli in urine, no tx per ID -will sign off, f/u labs as outpt Sepsis 2/2 strep associated soft tissue infection of RLE- -Abx per ID renally dosed -Needs to be followed in lymphedema clinic as likely to have recurrent soft tissue infections as a result of skin breakdown from edema Hypertension- -BP's still elevated -would start CHARLA inhibitor and labs now that DANIAL has resolved Consult appreciated, please contact if ?'s. 06/29/18 13:02 Subjective: No events overnight. UO>2L. Objective: Vital Signs Temp Pulse Resp BP Pulse Ox 36.9 C 73 18 155/93 H 95 06/29/18 11:52 06/29/18 11:52 06/29/18 11:52 06/29/18 11:52 06/29/18 11:52 Microbiology 06/26/18 17:01 Urine Culture - Final Urine,Clean Catch Escherichia Coli Esbl Laboratory Results 06/28/18 01:09 06/29/18 04:57 06/28/18 06/29/18 06/30/18 05:59 05:59 05:59 Intake Total 400 Output Total 1600 Balance -1200 Physical Exam - Physical Exam General Appearance: WD/WN, obese EENT: PERRL/EOMI Neck: non-tender, full range of motion, supple Respiratory: accessory muscle use, decreased breath sounds Cardiac/Chest: normal peripheral pulses, regular rate, rhythm, edema Abdomen: normal bowel sounds, non-tender, soft, distended Skin: normal color Extremities: pedal edema, swelling (R lymphadema significant) Neuro/Psych: alert, normal mood/affect, oriented x 3 ICD10 Worksheet Patient Problems: Problems Problem Status Onset Cellulitis of right lower extremity Acute Lymphedema of right lower extremity Acute Renal insufficiency Acute Sepsis Acute
[2018-06-29] MEDS: LISINOPRIL 10 MG TAB PO SCH (14:23)
--- NOTE | 2018-06-29 15:15 | ASMTCMCOM ---
CM Note CM Note Notes: Pt lives in [place] with and children, cleared by PT for home. CM available for any changes. DC Plan: Independent Date Signed: 06/29/2018 03:15 PM Electronically Signed By:Ragini De Santiago
[2018-06-30] MEDS: hydrALAZINE 20 MG/ML VIAL IVP PRN (08:56)
[2018-06-30] MEDS: CARVEDILOL 6.25 MG TAB PO SCH (08:58)
[2018-06-30] MEDS: amLODIPine BESYLATE 5 MG TAB PO SCH (08:58)
[2018-06-30] MEDS: LISINOPRIL 10 MG TAB PO SCH (08:58)
[2018-06-30] MEDS: CLOTRIMAZOLE 1% 15 GM CRTUBE TP SCH (09:02)
[2018-06-30 11:47] VITALS: BP 151/94
--- NOTE | 2018-06-30 14:49 | GDS ---
DISCHARGE DIAGNOSES: 1. Accelerated hypertension. 2. Acute kidney injury with proteinuria. 3. Sepsis. 4. Right lower leg cellulitis. 5. 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 6. Morbid obesity. 7. Lymphedema. 8. Morbid obesity. 9. Atrial fibrillation. CONSULTATIONS: 1. Infectious Disease. 2. Renal. HISTORY OF PRESENT ILLNESS: A pleasant 32-year-old male with morbid obesity, history of atrial fibri llation, chronic right leg edema presents to the ER with fever to 104. He is visiting from [facility], visiting his father who was just released from [facility] a few days ago, is with home hospice. He had b een in his usual state of health until he had developed chills. He felt very lethargic. Denied coug h, shortness of breath, chest pain, neck stiffness, or headache. In the ER, he met sepsis criteria a nd was noted to have a right leg cellulitis. HOSPITAL COURSE BY PROBLEM: 1. Acute kidney injury: He was noted to have nephrotic-range proteinuria with greater than 4 g on s pot check. Strepto enzyme was elevated. This can be associated with acute infections. However, the timing does not make sense as it would be several weeks after infection for this process to occur. His creatinine has normalized. He needs followup with an outpatient basic sciences dean. Repeat BMP. Cons ider biopsy. Repeat 24-hour urine protein. His immunologic testing including complements, glomerula r base, IgG, peroxidase, proteinase, CLEM were all negative. Negative hepatitis and HIV. 2. Right leg cellulitis: Lymphedema is likely contributing. He was on ceftriaxone here. He was tr ansitioned to Keflex for 4 more days. 3. Sepsis: Resolved secondary to his cellulitis. 4. Accelerated hypertension: Suspect that this has been long-standing. His echo demonstrates diast olic dysfunction and LVH. He was started on Norvasc, Coreg, and lisinopril which can be uptitrated. Monitor with Norvasc as can contribute to his lower extremity edema. 5. Lymphedema: Would recommend he get into a lymphedema clinic to avoid further infections. 6. Compensated diastolic heart failure: Again noted on echo. Continue aggressive blood pressure co ntrol. 7. History of atrial fibrillation: In [place], he has a CHADS score 0, now in normal sinus rhyth m. 8. ESBL E coli in urine: This is likely colonization. He is asymptomatic. Will not treat. 9. Morbid obesity: Was counseled on diet and exercise. 10. Possible inferior hypokinesis on echo: He denies any chest pain or shortness of breath. Would be reasonable for an outpatient stress test. DISPOSITION: Patient is stable for discharge. HOME MEDICATIONS: 1. Lisinopril 10 mg daily. 2. Coreg 6.25 mg twice daily. 3. Norvasc 5 mg. 4. Keflex 1 g t.i.d. daily. PHYSICAL EXAMINATION TODAY: VITAL SIGNS: Temperature 37.1, blood pressure 151/94, heart rate in 70s , respirations 18, 94% on room air. GENERAL: No acute distress. Morbidly obese. HEENT: Distant b ut regular. LUNGS: Clear anteriorly. ABDOMEN: Obese, soft, nontender, nondistended. Positive bow el sounds. MUSCULOSKELETAL: Significant right leg lymphedema, mild erythema. No ulcerations or ope n wounds. NEURO: 2 through 12 intact. PSYCH: Alert and oriented x3. FOLLOWUP: Primary care physician for the followin. Referral to Cardiology for an outpatient nuclear stress test. 2. Referral to Nephrology for repeat 24-hour urine protein. Consider biopsy. Repeat BMP. 3. Lymphedema clinic. 4. Followup blood scan. 5. Consider CT scan abdomen, pelvis to ensure no obstruction causing lymphedema. Time spent on discharge greater than 30 minutes bedside counseling on diet, exercise, medications, an d followup plan. /[id number]/MODL
--- NOTE | 2018-06-30 15:00 | ASDISCHSUM ---
Discharge Information Plan Status:Home with No Needs Medically Cleared to Leave: Discharge Date:06/30/2018 02:13 PM CM D/C Disposition:Home, Routine, Self-Care ADT D/C Disposition:Home, Routine, Self-Care Projected Discharge Date:06/30/2018 02:13 PM Transportation at D/C:Family Discharge Delay Reason: Follow-Up Date:06/30/2018 02:13 PM Discharge Slot: Final Diagnosis: Placement Information Patient Contact Information Contact Name:GALILEO Relationship: Address:[address] [place] [address] Work Phone: City:[place] Alternate Phone: State/Zip Code:[place] [address] Email: Financial Information Financial Class:Self-Pay Primary Plan Desc:SELF PAY Primary Plan Number: Secondary Plan Desc: Secondary Plan Number: Assessment Information LACE LACE Length of stay for Answers: 4-6 days current admission Acuity / Level of Answers: Yes Care: Did the patient have an inpatient admission? Comorbidities - select Answers: Congestive heart failure all that apply Coronary Artery Disease Other Notes: AFib; RLE cellulitis # of Emergency department Answers: 1-2 visits in the last 6 months Score: 13 Date Signed: 06/30/2018 02:59 PM Electronically Signed By:Ragini De Santiago [facility] Progress Note CECILIA Note CECILIA Note Notes: Pt is a 32 y/o man admitted for sepsis, viral syndrome and RLE cellulitis. Pt is visiting his family in [place]. Pts dad is currently home w/ hospice. Pt is here under self pay. According to pt, he has [place] medicaid. CM contacted financial counseling about this matter. Financial counseling to visit. CM met w/ pt and provided the phone numbe for financial counseling. CECILIA spoke to Nelda w/ physical therapy. Nelda reports that pt does not have any d/c needs. Pt is morbidly obese. CM available for changes. Plan: Independent Date Signed: 06/25/2018 12:37 PM Electronically Signed By:TOMMY Atkins [facility] Progress Note CM Note CM Note Notes: Pt admitted into hospital w/right leg cellulitis. He is here visiting his father who is home whospice. Pt currently receivingIV abx but should dc with po. Pt lives in [place] with and children, cleared by PT for home. CM available for any changes. DC Plan: Independent Date Signed: 06/28/2018 12:30 PM Electronically Signed By:Leonela Yadav RN [facility] CECILIA Progress Note CM Note CECILIA Note Notes: Pt lives in [place] with and children, cleared by PT for home. CM available for any changes. DC Plan: Independent Date Signed: 06/29/2018 03:15 PM Electronically Signed By:Ragini De Santiago Intervention Information
== END 2018-06-30 14:13 | disposition home or self-care (01) | DRG 872 ==
LOC: F3E 20:14
PROVIDERS: ADMIT Internal Medicine; ATTEND Internal Medicine
DX: A41.9 Sepsis, unspecified organism (principal); N17.9 Acute kidney failure, unspecified; L03.115 Cellulitis of right lower limb; I11.0 Hypertensive heart disease with heart failure; I50.32 Chronic diastolic (congestive) heart failure; E66.01 Morbid (severe) obesity due to excess calories; E86.9 Volume depletion, unspecified; I89.0 Lymphedema, not elsewhere classified; I48.91 Unspecified atrial fibrillation; Z79.01 Long term (current) use of anticoagulants
CPT/HCPCS: 83520-90; 84166-90; 86334-90; 96365; 97116-GP; 97161-GP; 97165-GO; G0472; J0360; J0690; J0696; J1644

== ENCOUNTER 2018-07-06 16:41 | Emergency (ER) | payer SELFPAY ==
[2018-07-06] MEDS ORDERED: CEPHALEXIN 500 MG CAP PO ONE (17:17)
--- NOTE | 2018-07-06 17:18 | EDPHY ---
H & P Stated Complaint: Pain L foot Time Seen by Provider: 07/06/18 17:09 HPI/ROS: CHIEF COMPLAINT: Left foot pain HISTORY OF PRESENT ILLNESS: The patient is a 32-year-old morbidly obese man who was recently discharged after an episode of right lower extremity cellulitis , acute kidney injury and sepsis in the setting of chronic lymphedema in that leg. He also has a history of paroxysmal atrial fibrillation, and hypertension. He was treated with ceftriaxone successfully in transition to Keflex. He states that he has not yet filled his prescriptions that he was discharged with because his dad this week. He is here visiting for the . He states that on the last day before he was discharged when he stood up to get out of bed he noticed some pain in his left foot. He did not have any significant trauma. It has hurt ever since. He has come here now to get an x-ray. He states that the cellulitis in his right leg has improved significantly. He was on Lovenox prophylactically while he was in the hospital. His foot hurts only with weight-bearing. Severity: Moderate Modifying factors: None REVIEW OF SYSTEMS: Constitutional: denies: chills, fever, recent illness, recent injury EENTM: denies: blurred vision, double vision, nose congestion Respiratory: denies: cough, shortness of breath Cardiac: denies: chest pain, irregular heart rate, lightheadedness, palpitations Gastrointestinal/Abdominal: denies: abdominal pain, diarrhea, nausea, vomiting, blood streaked stools Genitourinary: denies: dysuria, frequency, hematuria, pain Musculoskeletal: denies: joint pain, muscle pain Skin: See HPI Neurological: denies: headache, numbness, paresthesia, tingling, dizziness, weakness Hematologic/Lymphatic: denies: blood clots, easy bleeding, easy bruising Immunologic/allergic: denies: HIV/AIDS, transplant 10 systems reviewed and negative except as noted EXAM: GENERAL: Well-appearing, morbidly obese and in no acute distress. HEAD: Atraumatic, normocephalic. EYES: Pupils equal round and reactive to light, extraocular movements intact, sclera anicteric, conjunctiva are normal. ENT: TMs normal, nares patent, oropharynx clear without exudates. Moist mucous membranes. NECK: Normal range of motion, supple without lymphadenopathy or JVD. LUNGS: Breath sounds clear to auscultation bilaterally and equal. No wheezes rales or rhonchi. HEART: Regular rate and rhythm without murmurs, rubs or gallops. ABDOMEN: Soft, nontender, normoactive bowel sounds. No guarding, no rebound. No masses appreciated. BACK: No CVA tenderness, no spinal tenderness, step-offs or deformities EXTREMITIES: Left foot pain at the arch of the foot. No obvious deformity. No tenderness. No warmth or erythema. Pain with weight-bearing only. 2+ pitting edema on the left, large elephantitis type lymphedema in the right leg. Decreasing erythema according to the patient and mom. NEUROLOGICAL: Cranial nerves II through XII grossly intact. Normal speech, normal gait but with pain. 5/5 strength, normal movement in all extremities, normal sensation, normal reflexes PSYCH: Normal mood, normal affect. SKIN: See above Source: Patient Exam Limitations: No limitations - Personal History Current Tetanus/Diphtheria Vaccine: Yes - Medical/Surgical History Hx Asthma: No Hx Chronic Respiratory Disease: No Hx Diabetes: No Hx Cardiac Disease: No Hx Renal Disease: No Hx Cirrhosis: No Hx Alcoholism: No Hx HIV/AIDS: No Hx Splenectomy or Spleen Trauma: No Other PMH: afib, cellulitis, chronic lymphedema, morbid obesity, - Family History Significant Family History: No pertinent family hx - Social History Smoking Status: Never smoked Alcohol Use: Sober Drug Use: None Constitutional: Initial Vital Signs Temperature (C) 36.8 C 07/06/18 17:01 Heart Rate 82 07/06/18 17:01 Respiratory Rate 18 07/06/18 17:01 Blood Pressure 178/101 H 07/06/18 17:01 O2 Sat (%) 96 07/06/18 17:01 O2 Delivery Mode Room Air Allergies/Adverse Reactions: No Known Allergies Allergy (Unverified 07/06/18 17:05) Home Medications: Medication Instructions Recorded Cephalexin [Keflex (*)] 1,000 mg PO TID #24 cap 06/30/18 Lisinopril 10 mg PO DAILY #30 tablet 06/30/18 amLODIPine BESYLATE [Amlodipine 5 mg PO DAILY #30 tablet 06/30/18 Besylate] Medical Decision Making - Diagnostics Imaging: Discussed imaging studies w/ linoleum floor installer Radiologist ED Course/Re-evaluation: Patient is primarily concerned about his left foot. Will obtain x-rays to rule out fracture. He states that his cellulitis is improving. He has not taken antibiotics for the last several days since discharge on the . I will give him a dose of Keflex here tonight and encouraged him to fill his prescription and begin taking them. 6:40 p.m. we discussed the x-ray results. The patient is reassured. He again confirm that he has not had any increased swelling in his calf or thigh or any cramping or pain in his calf or thigh. He and his mom feel comfortable going home. They declined further workup or testing at this time. Differential Diagnosis: Partial list of the Differential diagnosis considered include but were not limited to; arthritis, stress fracture, tendinitis and although unlikely based on the history and physical exam, I also considered DVT, infection. I discussed these differential diagnoses and the plan with the patient as well as the usual and expected course. The patient understands that the diagnosis is provisional and that in medicine we are not always correct and that further workup is often warranted. Usual and customary warnings were given. All of the patient's questions were answered. The patient was instructed to return to the emergency department should the symptoms at all worsen or return, otherwise to followup with the physician as we discussed. - Data Points Medications Given: Discontinued Medications Acetaminophen (Tylenol) 650 mg PO EDNOW ONE Stop: 07/06/18 18:11 Last Admin: 07/06/18 18:19 Dose: Not Given Cephalexin HCl (Keflex) 500 mg PO EDNOW ONE PRN Reason: Protocol Stop: 07/06/18 17:18 Last Admin: 07/06/18 17:33 Dose: 500 mg Diphenhydramine HCl (Benadryl) 25 mg PO EDNOW ONE Stop: 07/06/18 18:12 Last Admin: 07/06/18 18:19 Dose: Not Given Departure - Departure Disposition: Home, Routine, Self-Care Clinical Impression: Foot pain, left Condition: Good Instructions: Arthralgia (ED) Referrals: [facility],. [Clinic] - As per Instructions Lori Fallon MD [[facility] Primary Care Provider] - As per Instructions
[2018-07-06] MEDS ORDERED: ACETAMINOPHEN 325 MG TAB PO ONE (18:10)
[2018-07-06] MEDS ORDERED: diphenhydrAMINE 25 MG CAP PO ONE (18:11)
[2018-07-06 19:05] VITALS: BP 185/122
== END 2018-07-06 19:14 | disposition home or self-care (01) ==
DX: M79.672 Pain in left foot (principal); L03.115 Cellulitis of right lower limb; I89.0 Lymphedema, not elsewhere classified; I48.0 Paroxysmal atrial fibrillation; I10 Essential (primary) hypertension; E66.01 Morbid (severe) obesity due to excess calories
CPT/HCPCS: L4386